=== PATIENT | female | born 1985 ===

== ENCOUNTER 2024-08-24 22:39 | Emergency (ER) | payer OTHER ==
[~2024-08-24] VITALS: Ht 170.2 cm; Wt 81.7 kg
[~2024-08-24 22:39] MED LIST: HYDACE5 PO; IBUP800 PO; MULVITMINE
[2024-08-24 22:46] VITALS: BP 153/101
== END 2024-08-25 00:06 | disposition home or self-care (01) ==
LOC: ER 22:39
DX: K42.9 Umbilical hernia without obstruction or gangrene (principal); Z87.891 Personal history of nicotine dependence
CPT/HCPCS: 99283